=== PATIENT | male | born 1960 | race African-American/Black ===

== ENCOUNTER 2017-05-09 08:01 | Emergency (ER) | payer BC ==
[2017-05-09 08:11] VITALS: BP 113/86; PULSE 107; TEMP 98; BMI 27.3
--- NOTE | 2017-05-09 08:32 | PDOC ---
History of Present Illness - General Stated Complaint: UNABLE TO SLEEP Time Seen by Provider: 05/09/17 08:23 History Source: Patient Exam Limitations: No Limitations - History of Present Illness Initial Comments: 05/09/17 08:27 56 yr male presents to ER c/o coughing at night that is keeping him awake causing him to not sleep well, keeping him awake at night. Pt denies medical history no psychiatric history. Pt states he took zyrtec during the day. Pt denies any suicidal or homicidal thoughts denies stress, depression, no changes in diet or lifestyle. Denies drug and ETOH use. Past History - Past Medical History Allergies/Adverse Reactions: Allergies Allergy/AdvReac Type Severity Reaction Status Date / Time No Known Allergies Allergy Verified 05/09/17 08:11 Home Medications: Ambulatory Orders Benzonatate [Tessalon Perle -] 200 mg PO TID PRN #42 cap 05/09/17 Diphenhydramine [Benadryl Capsule -] 50 mg PO HS PRN #7 capsule 05/09/17 - Psycho/Social/Smoking Cessation Hx Anxiety: No Suicidal Ideation: No Smoking History: Former smoker Have you smoked in the past 12 months: No Number of Cigarettes Smoked Daily: 0 Information on smoking cessation initiated: No Hx Alcohol Use: No Drug/Substance Use Hx: No Substance Use Type: None Hx Substance Use Treatment: No *Physical Exam - Vital Signs Last Vital Signs Temp Pulse Resp BP Pulse Ox 98 F 107 H 18 113/86 99 05/09/17 08:07 05/09/17 08:07 05/09/17 08:07 05/09/17 08:07 05/09/17 08:07 - Physical Exam General Appearance: Yes: Nourished, Appropriately Dressed HEENT: positive: EOMI, GEETHA, Normal ENT Inspection, TMs Normal, Pharynx Normal Neck: positive: Supple Respiratory/Chest: positive: Lungs Clear, Normal Breath Sounds Cardiovascular: positive: Regular Rhythm, Regular Rate Gastrointestinal/Abdominal: positive: Normal Bowel Sounds, Soft Musculoskeletal: positive: Normal Inspection Extremity: positive: Normal Capillary Refill, Normal Inspection, Normal Range of Motion Integumentary: positive: Normal Color, Dry, Warm Neurologic: positive: Fully Oriented, Alert, Normal Mood/Affect, Normal Response , Motor Strength 5/5, Finger to Nose (intact). negative: Sensory Deficit, Confused, Depressed Affect Medical Decision Making - Medical Decision Making 05/09/17 12:44 cc: coughing unable to sleep due to cough at night no SOB,no chest pain no suicidal thoughts or depressive thoughts, pt denies any psych history will give benadryl and tessalon for cough follow with your doctor as needed at [facility] *DC/Admit/Observation/Transfer Diagnosis at time of Disposition: Cough Insomnia Qualifiers: Insomnia type: unspecified Qualified Code(s): G47.00 - Insomnia, unspecified - Discharge Dispostion Disposition: HOME Condition at time of disposition: Good - Prescriptions Prescriptions: Diphenhydramine [Benadryl Capsule -] 50 mg PO HS PRN #7 capsule PRN Reason: Insomnia Benzonatate [Tessalon Perle -] 200 mg PO TID PRN #42 cap PRN Reason: Cough - Referrals Referrals: [facility] ([facility]) [Outside] - Patient Instructions Additional Instructions: avoid caffeine after 3pm avoid any alcohol or sugary foods before bed take the medications as directed follow with the [facility] for follow up and primary care Return to ER for any worsening symptoms
== END 2017-05-09 08:39 | disposition home or self-care (01) ==
LOC: JERFT 08:01
DX: G47.00 Insomnia, unspecified (principal)
CPT/HCPCS: 99281-25

== ENCOUNTER 2024-07-25 10:11 | Emergency (ER) | payer BC ==
[2024-07-25 10:21] VITALS: BP 110/73; PULSE 90; RESP 20; TEMP 99.1; BMI 31.6
[2024-07-25 13:16] LABS: HIV INTERPRETATION NEGATIVE (NEGATIVE)
== END 2024-07-25 11:46 | disposition home or self-care (01) ==
LOC: JERFT 10:11
PROC: 2W3RX1Z Immobilization of Left Lower Leg using Splint (ICD-10-PCS; principal; 2024-07-25)
DX: S82.832A Other fracture of upper and lower end of left fibula, initial encounter for closed fracture (principal); X50.1XXA Overexertion from prolonged static or awkward postures, initial encounter
CPT/HCPCS: 36415; 73610-TC-LT-FY; 86803; 87389; 99284-25